=== PATIENT | male | born 2000 | race Hispanic/Latino ===

== ENCOUNTER 2024-12-07 17:50 | Emergency (ER) | payer SELFPAY ==
[2024-12-07 17:52] VITALS: BP 137/62
[2024-12-07] MEDS: TORADOL 60 MG IM (20:58)
[2024-12-07] MEDS: MORPHINE SULFATE 2 MG IV (22:07)
[2024-12-07] MEDS: ZOFRAN 4 MG IV (22:07)
[2024-12-07] MEDS: VALIUM INJECTION 5 MG IV (22:42)
[2024-12-07] MEDS: DECADRON 10 MG IV (23:17)
[2024-12-07 23:23] VITALS: BP 106/56
[2024-12-07 23:24] VITALS: BP 106/56
--- NOTE | 2024-12-08 02:16 | ED.GENMED ---
History of Present Illness
General
Chief Complaint: Back Pain
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
Exam Limitations: none
Time Seen by Provider: 12/07/24 20:41
Nursing documentation reviewed up to this point in time: agreed with
History of Present Illness
History of Present Illness:
Patient to ED with complaint of severe low back pain. States he was at the gym lifting weights and then played basketball. WHile playing basketball he developed pain to low back. Taking tylenol without improvement. Denies fever/chills, recent
illness. No weakness to extremities, no bowel or bladder issues, no saddle paresthesia. Brought to ED by family for eval.
Past History
Past History
ED Past Medical History: None
ED Past Surgical History: None
Review of Systems
Review of Systems
Allergies reviewed?: Yes
All Other Systems: ROS reviewed and negative except as documented in HPI and ROS
Constitutional: Reports no symptoms
EENT: Reports no symptoms
Respiratory: Reports no symptoms
Cardiac: Reports no symptoms
ABD/GI: Reports no symptoms
Musculoskeletal: Reports back pain (low back pain)
Skin: Reports no symptoms
Neurological: Reports no symptoms
Psychiatric: Reports no symptoms
Phy Exam
General Physical Exam
General Presentation: well appearing and no apparent distress
General age: appears stated age
General Skin: warm and dry
General Habitus: normal
General Mental: alert
General Hydration: appears well hydrated
Reflexes
Reflexes: +3: Left patellar and +3: Right patellar
Musculoskeletal Exam
Musculoskeletal Exam: no edema and neuro vasc intact
Skin Exam
Skin Exam: normal color, warm/dry and no rash
Psychiatric Exam
Psychiatric Exam: normal mood/affect
Course
Orders/Labs/Results
Orders:
Orders
12/07/24 20:49
Ketorolac [Toradol] 60 mg IM NOW STA
Lumbar Spine Complete, 4 View [CR Lumbar Spine Comp Min 4 Vw*] Urgent
Comment:
Reason For Exam: pain
12/07/24 22:01
Morphine Sulfate 2 mg IV NOW STA
Ondansetron Injectable [Zofran] 4 mg IV NOW STA
12/07/24 22:38
diazePAM [Valium Injection] 5 mg IV NOW STA
12/07/24 23:11
Dexamethasone Sod Phosphate [Decadron] 10 mg IV NOW STA
Vital Signs
Initial and Last Documented VS:
Initial Vital Signs
Temp Pulse Resp BP Pulse Ox
98.1 F 65 16 137/62 98
12/07/24 17:52 12/07/24 17:52 12/07/24 17:52 12/07/24 17:52 12/07/24 17:52
Last Documented Vital Signs
Temp Pulse Resp BP Pulse Ox
98.1 F 77 18 106/56 98
12/07/24 17:52 12/07/24 23:24 12/07/24 23:24 12/07/24 23:24 12/07/24 23:24
*Radiology
Radiology exam reviewed: radiology read reviewed
*Pulse Oximetry
Patient hypoxic: no
*Critical Care Note
Total Time (30-74mins, 75-104mins- exclusive of procedures): Not Applicable
Update Note
Update Note:
Improvement with IV pain meds. Able to ambulate with use of crutches. Neurologically intact. Will discharge home, continue anti-inflammatory and muscle relaxing meds, follow up with [facility]. Given instrutions on s/s to return to ED and he is
agreeable to plan
ED Attending Note
-
Portions of this chart may have been created with voice recognition software.� Occasional wrong word or��sound alike� substitutions may have occurred due to the inherent limitations of voice recognition software.
Discharge Plan
Departure
Patient Disposition: Home (Routine Discharge)
Date of Disposition: 12/07/24
Time of Disposition: 23:11
Patient with high blood pressure during this ER visit?: No
Condition: Good
Covid-19: Not Applicable
Discharge Problem:
Lumbar strain
Instructions: Low Back Pain (DC), Using Cold for Pain
Prescriptions:
New
ibuprofen 600 mg tablet
600 mg PO Q6H PRN (Reason: Pain) Qty: 20 0RF
cyclobenzaprine 10 mg tablet
10 mg PO HS PRN (Reason: muscle spasms) Qty: 10 0RF
Referrals:
[facility] [[facility] - Call in 1-3 days for appt
UNKNOWN - PT DOES,NOT KNOW [Family Provider] -
Stand Alone Forms: Return to Work
Interventions
Interventions:
*Risk Screen - Suicide Last Done: 12/07/24 17:54
*General Assessment Last Done: 12/07/24 22:48
*Neglect/Abuse Screening Last Done: 12/07/24 17:54
*Nursing Disposition Last Done: 12/07/24 23:24
ED-Musculoskeletal Assessment Last Done: 12/07/24 22:46
Discharge Date and Time
Discharge Date/Time: 12/07/24 23:29
Print Language: NIGERIAN
Musculoskeletal Injury Exam
Musculoskeletal Injury Exam
Lower Back:
Pain with Movement?: Moderate
Tender to palpation?: None
Soft tissue swelling?: None
External deformity and angulation?: None
Joint effusion?: None
Contusion?: None
Hematoma-local bleeding into tissue?: None
Strain- Sprain- Tear (Connective tissue injury)?: Moderate
Crepitus with movement?: No
Joint instability?: No
Malalignment/deformity?: No
Range of motion: Limited
Distal skin color and temperature: normal-warm & good color
Capillary Refill: normal
Normal distal neurovascular exam?: No
== END 2024-12-07 23:29 | disposition home or self-care (01) ==
LOC: EMR 17:50
PROVIDERS: EMERGENCY PHYSICIAN Student in an Organized Health Care Education/Training Program
DX: S39.012A Strain of muscle, fascia and tendon of lower back, initial encounter (principal); X58.XXXA Exposure to other specified factors, initial encounter; Y93.67 Activity, basketball
CPT/HCPCS: 99284; 96374; 96375; 96372; 72110